=== PATIENT | male | born 1950 | race Caucasian/White ===

== ENCOUNTER 2018-10-22 07:07 | Day surgery (SDC) | payer OTHER, MEDICARE ==
[2018-10-14 11:56] VITALS: BMI 25.1
[2018-10-22] MEDS ORDERED: BUPIVACAINE HCL/EPINEPHRINE/PF 30 ML VIAL IJ ONE (07:40)
[2018-10-22] MEDS ORDERED: MIDAZOLAM HCL 2 MG/2 ML SINGLE DOSE VIAL ONE (09:14)
[2018-10-22] MEDS ORDERED: ONDANSETRON 4 MG/2 ML VIAL ONE ×2 (09:14→10:10)
[2018-10-22] MEDS ORDERED: DEXAMETHASONE SOD PHOSPHATE 4 MG/1 ML VIAL ONE ×2 (09:14→10:10)
[2018-10-22] MEDS ORDERED: PROPOFOL 20 ML ONE (09:26)
[2018-10-22] MEDS ORDERED: TRANEXAMIC ACID 1000 MG/10 ML VIAL ONE (09:31)
[2018-10-22] MEDS ORDERED: ceFAZolin SODIUM 1 GM VIAL ONE (09:31)
[2018-10-22] MEDS ORDERED: ePHEDrine SULFATE 50 MG/1 ML AMPULE ONE (09:43)
[2018-10-22] MEDS ORDERED: BUPIVACAINE 0.25% /EPI 1:200,000 10 ML VIAL NR ONE (09:48)
[2018-10-22] MEDS ORDERED: oxyCODONE HCL 5 MG TABLET PO PRN ×2 (10:47→11:02)
--- NOTE | 2018-10-22 10:50 | SURG ---
Surgery Records Specialist Note Records Specialist: Megan Alvarenga PA-C Date of Service: 10/22/18 Diagnosis: right olecranon bursitis Procedure: right elbow olecranon bursectomy I was present for the entirety of the operative procedure. For further detail, please refer to operative report. Visit type - Case Type Case Type: Scheduled - Emergency Emergency Visit: No - New patient This patient is new to me today: Yes Date on this admission: 10/22/18
--- NOTE | 2018-10-22 10:50 | OP ---
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
--- NOTE | 2018-10-22 10:51 | DS ---
Physical Examination Vital Signs: Vital Signs Temperature 98.2 F 10/22/18 07:27 Pulse Rate 66 10/22/18 07:27 Respiratory Rate 18 10/22/18 07:27 Blood Pressure 145/80 10/22/18 07:27 O2 Sat by Pulse Oximetry (%) 98 10/22/18 07:27 Discharge Summary Reason For Visit: OLECRANON BURSITIS, BONE SPUR RIGHT ELBOW Condition: Good - Instructions Diet, Activity, Other Instructions: Post Operative Instructions: Shoulder Arthroscopy Dr Son Singh 1. Pain following a Shoulder Arthroscopy is variable and can be significant. Some patients will have more pain than others. You have been provided with a prescription for medication that contains a narcotic. You are not allowed to drive while on this medication. You should take Tylenol (Acetaminophen) when taking the pain medication ( it will NOT result in an overdose). Feel free to take medications such as Ibuprofen or Naprosyn in addition to the pain medicine if you do not have any problems with the NSAID class of medications. 2. Apply ice to the elbow for 15 minutes every hour. You may continue this for as many days as necessary. 3. You may find sleeping on an incline (reclining chair) to be more comfortable for the first few days. 4. You may remove your sling AND the SPLINT in days. 5. You may use the arm as tolerated after the splint comes off in 3 days 6. You may remove the splint in 3-4 days. 7. Please call the office to schedule a visit to have your sutures removed. 8. If for any reason you believe you may have an infection or are concerned, please feel free to call me. I can be reached through our office number 24 hours a day. 9. Please call our office with any questions; we will review the surgical findings during your post-operative visit. Disposition: HOME - Home Medications Comprehensive Discharge Medication List: Ambulatory Orders Olmesartan Medoxomil 20 mg PO DAILY 10/14/18
[2018-10-22] MEDS ORDERED: ONDANSETRON 4 MG/2 ML VIAL IVPUSH PRN (11:02)
[2018-10-22] MEDS ORDERED: LACTATED RINGERS SOLUTION 1,000 ML IV SCH (11:15)
[2018-10-22 12:32] VITALS: TEMP 97.8
[2018-10-22] MEDS ORDERED: oxyCODONE HCL 5 MG TABLET ONE (12:33)
[2018-10-22 13:04] VITALS: BP 126/72; PULSE 72
--- NOTE | 2018-10-28 10:12 | PATH ---
Surgical Pathology Report Patient Name: KAYLEE GOMEZ Med. Rec. #: [id number] /Age/Gender: 1950 (Age: 67) / M Account: [id number] Location: [facility] Taken: 10/22/2018 Received: 10/22/2018 Reported: 10/28/2018 Physicians: Son Singh M.D. Specimen(s) Received RIGHT ELBOW BURSA Clinical History Olecranon bursitis Final Diagnosis ELBOW, RIGHT, BURSA, EXCISION: FIBROSYNOVIAL TISSUE SHOWING NODULAR AGGREGATES OF CRYSTALLINE MATERIAL, (CONSISTENT WITH SODIUM URATE MONOHYDRATE CRYSTALS) WITH SURROUNDING HISTIOCYTIC/GIANT CELL REACTION, CONSISTENT WITH GOUTY TOPHI. (SEE NOTE) Note: Shidham stain was used to highlight the polarizable characteristics of the crystalline material. Electronically Signed Megan Santana M.D. Gross Description Received in formalin labeled "bursa right elbow," is a 3.7 x 2.9 x 1.5 cm mckeon-yellow fibrous mass. Sectioning reveals a cystic space containing white chalky material. A outreach representative section is submitted in one cassette. /[facility]
== END 2018-10-22 13:16 | disposition home or self-care (01) ==
LOC: FASU 07:07
PROVIDERS: ATTEND Orthopaedic Surgery
PROC: 0LM30ZZ Reattachment of Right Upper Arm Tendon, Open Approach (ICD-10-PCS; 2018-10-22)
PROC: 0MB30ZZ Excision of Right Elbow Bursa and Ligament, Open Approach (ICD-10-PCS; principal; 2018-10-22 09:48)
DX: M70.21 Olecranon bursitis, right elbow (principal); M25.721 Osteophyte, right elbow; M10.021 Idiopathic gout, right elbow
CPT/HCPCS: 88305-TC; 94760